=== PATIENT | male | born 1995 | race Caucasian/White ===

== ENCOUNTER 2025-03-08 20:56 | Emergency (ER) | payer OTHER ==
[~2025-03-08] VITALS: Ht 190.5 cm; Wt 104.1 kg
[~2025-03-08 20:56] MED LIST: CIPRO500 MG PO; LEXAPRO10 MG PO; METRONIDAZOLE500 MG PO; MIRTAZAPINE15 MG PO; TYLENOL325 MG PO; VENTOLIN HFA18 GM INH; VISTARIL50 MG PO
[2025-03-08 21:51] LABS: BASOPHILS 0.3 % (0.2-1.2); EOSINOPHILS 0.8 % (0.8-7.0); LYMPHOCYTES 17.5 % (21.8-53.1); MCH 30.6 PG (25.7-32.2); MCHC 35.4 g/dL (32.3-36.5); MCV 86.3 fL (79.0-92.2); MONOCYTES 9.1 % (5.3-12.2); NEUTROPHILS 72.1 % (34.0-67.9); RBC 5.17 M/uL (4.63-6.08)
[2025-03-08 22:07] LABS: ALT (SGPT) 22.0 U/L (14-59); AST (SGOT) 16.0 U/L (15-37); GLOMERULAR FILTRATION RATE,EST 72.0 mL/min (>60); PROTEIN, TOTAL 7.7 g/dL (6.4-8.2); UREA NITROGEN 15.0 mg/dL (7-18)
[2025-03-08] MEDS ORDERED: MELOXICAM7.5 MG PO (22:29)
[2025-03-08] MEDS ORDERED: VENTOLIN HFA18 GM (22:29)
[2025-03-08] MEDS ORDERED: CLEOCIN HCL300 MG PO (23:07)
[2025-03-08] MEDS ORDERED: TRAMADOL HCL50 MG PO (23:07)
[2025-03-08] MEDS ORDERED: TRAMADOL HCL 50 MG HOME.PACK PO ONE (23:15)
[2025-03-08 23:23] VITALS: BP 124/78
== END 2025-03-08 23:24 | disposition home or self-care (01) ==
LOC: ED 20:56
PROVIDERS: Family Medicine
DX: S02.32XA Fracture of orbital floor, left side, initial encounter for closed fracture (principal); S02.40DA Maxillary fracture, left side, initial encounter for closed fracture; S02.2XXA Fracture of nasal bones, initial encounter for closed fracture; Y04.0XXA Assault by unarmed brawl or fight, initial encounter
CPT/HCPCS: 36415; 70450; 70486; 80053; 85025; 96374; 99284-25; A9270; J2405